=== PATIENT | male | born 1965 | race Caucasian/White ===

== ENCOUNTER → 2017-04-05 | Outpatient (CLI) | payer OTHER ==
[~2017-04-05] MED LIST: GLUCOSAMINE; GLUTAMINE; TUMERIC; VITAMIN B12; VITAMIN E
[2017-04-05 15:49] LABS: BASOPHILS % 0.5 % (0.0-1.0); BILIRUBIN,URINE NEGATIVE (NEGATIVE); CLARITY,URINE CLOUDY (CLEAR); COLOR,URINE YELLOW (YELLOW); EOSINOPHILS # (AUTO) 0.3 (0.0-0.4); EOSINOPHILS % 3.7 % (0.0-6.0); HEMATOCRIT 35.6 % (38.2-49.6); HEMOGLOBIN 11.1 g/dL (14.0-18.0); KETONES,URINE NEGATIVE (NEGATIVE); LEUKOCYTE ESTERASE ,URINE NEGATIVE (NEGATIVE); LYMPHOCYTES % 26.9 % (18.0-39.1); MEAN CORPUSCULAR HEMOGLOBIN 22.8 pg (28-32); MEAN CORPUSCULAR HGB CONC 31.2 g/dL (31-35); MEAN CORPUSCULAR VOLUME 73.3 fL (81-99); MONOCYTES # (AUTO) 0.8 (0.2-0.8); MONOCYTES % 10.4 % (4.4-11.3); NEUTROPHILS # (AUTO) 4.3 (2.1-6.9); NEUTROPHILS % 58.2 % (38.7-80.0); NITRITE,URINE NEGATIVE (NEGATIVE); PLATELET COUNT 358 x10e3/uL (140-360); PROTEIN,URINE DIPSTICK NEGATIVE (NEGATIVE); RED BLOOD COUNT 4.86 x10e6/uL (4.3-5.7); RED CELL DISTRIBUTION WIDTH 15.3 % (11.7-14.4); URINE UROBILINOGEN 0.2 mg/dL (0.2 - 1)
[2017-04-05 15:52] LABS: INR 0.88; PROTHROMBIN TIME 12.4 seconds (11.9-14.5)
[2017-04-05 15:53] LABS: PARTIAL THROMBOPLASTIN TIME 30.5 seconds (23.8-35.5)
[2017-04-05 16:02] LABS: ANION GAP 12.3 mmol/L (8-16); BLOOD UREA NITROGEN 22 mg/dL (7-26); BUN/CREATININE RATIO 24 (6-25); CALCIUM 9.4 mg/dL (8.4-10.2); CARBON DIOXIDE 27 mmol/L (22-29); CHLORIDE 106 mmol/L (98-107); CHOL/HDL RATIO 3.1 (3.9-4.7); CHOLESTEROL 161 MD/DL (0-199); EST GLOMERULAR FILTRATION RATE > 60 ML/MIN (60-); GLUCOSE 96 mg/dL (74-118); HDL CHOLESTEROL 52 MG/DL (40-60); LDL CHOLESTEROL 99 MG/DL (60-130); POTASSIUM 4.3 mmol/L (3.5-5.1); SODIUM 141 mmol/L (136-145); TRIGLYCERIDES 51 MG/DL (0-149)
--- NOTE | 2017-04-05 18:15 | Diagnostic Imaging Report ---
PROCEDURE:CHEST 2 VIEWS COMPARISON:None. INDICATIONS:PREOP - HERNIA REPAIR FINDINGS: Lines and tubes: None Heart size normal. No focal pulmonary opacity, pleural effusion or pneumothorax. Upper abdomen unremarkable with no free air. No acute bony abnormality. CONCLUSION:No evidence for acute disease. Dictated by: Agustin Srivastava M.D. on 04/05/2017 at 18:23 Electronically approved by: Agustin Srivastava M.D. on 04/05/2017 at 18:23
== END ==
LOC: RAD 14:46
PROVIDERS: ATTEND Surgery
DX: K40.90 Unilateral inguinal hernia, without obstruction or gangrene, not specified as recurrent (principal); D56.9 Thalassemia, unspecified; E16.2 Hypoglycemia, unspecified; M79.7 Fibromyalgia; G47.30 Sleep apnea, unspecified
CPT/HCPCS: 36415; 71020; 80048; 80061; 81003; 84152; 85025; 85610; 85730; 93005

== ENCOUNTER → 2017-04-14 | Day surgery (SDC) | payer OTHER ==
[~2017-04-14] MED LIST changes: +BACITRACIN ZINC 15 GM OINT ONE; +CEFAZOLIN SOD 1 GM VIAL ONE; +DEXAMETHASONE SOD PHOS INJ 4 MG/ML VIAL ONE; +FENTANYL CITRATE/PF 100MCG/2 ML INJ ONE; +GLYCOPYRROLATE INJ 1MG/ 5 ML SYR ONE; +KETOROLAC TROMETHAMINE 30 MG/ML VIAL ONE; +LIDOCAINE 1% W/EPINEPHRINE 20 ML VIAL ONE; +LIDOCAINE HCL 2% LOCAL INJ 5 ML SDV VIAL INJ ONE; +MIDAZOLAM HCL 2 MG/2 ML VIAL ONE; +NEOSTIGMINE 5 MG/5ML SYR ONE; +ONDANSETRON HCL INJ 2 MG/ML VIAL ONE; +PROPOFOL IV EMULSION 10 MG/ML 20 ML VIAL ONE; +SEVOFLURANE INHAL SOLN 250 ML PEN BTL ONE
--- NOTE | 2017-04-14 14:39 | Operative Report ---
DATE OF PROCEDURE: April 14, 2017 PREOPERATIVE DIAGNOSIS: Left inguinal hernia. POSTOPERATIVE DIAGNOSIS: Left inguinal hernia. PROCEDURE PERFORMED: Repair of left inguinal hernia with ULTRAPRO hernia system, oval type. RADIUS CORNER MACHINE OPERATOR: Nyla Parker. ESTIMATED BLOOD LOSS: Minimal. DRAINS: None. COMPLICATIONS: None. INDICATIONS: The patient is a 51-year-old male who complained of a bulge of the left groin for over a year, becoming tender now. INTRAOPERATIVE FINDINGS: Patient had a direct defect, no indirect hernia sac. The defect was basically a blowout of the inguinal canal floor. There was no femoral herniation. The ULTRAPRO hernia system oval type was deployed. DESCRIPTION OF THE PROCEDURE: With the patient lying on the operative table in the supine position after administration of general anesthesia, he was prepped and draped for repair of left inguinal hernia. Preemptive anesthesia was given with 0.25% Marcaine with epinephrine as an ilioinguinal nerve block and an incisional nerve block. A transverse groin incision was made, deepened through the skin, subcutaneous tissue, and Kenny's fascia until the external oblique aponeurosis was identified. This was incised along the course of the fibers, transecting the external inguinal ring. Medial and lateral leads were developed. The cord was mobilized at the level of the pubic tubercle and retracted away from the operative field by a Yariel drain. The cremaster veil was incised. An indirect hernia sac was searched for and none was found. The transversalis fascia, which was protruding with a blowout of the floor, was incised exposing the preperitoneal space. Using blunt dissection, the ULTRAPRO hernia system was then deployed in the preperitoneal space with the underlay part of the mesh covering the direct defect and the femoral area and the overlay part of the mesh over the inguinal canal floor. A slit was made to accommodate the cord and the mesh was then secured to the local tissues using a series of interrupted 2-0 Ethibond suture. The wound was irrigated. Bleeding points were cauterized. Sponge and instrument counts were correct twice during this type of the procedure. Then, the wound was irrigated. Further local infiltration was given to the operative field with 1% Xylocaine with epinephrine and then, the wound was closed in layers using 2-0 Vicryl for the external oblique aponeurosis, 2-0 plain catgut for the soft tissues, and the skin was closed using madina. Sterile dressing was applied. The patient tolerated the procedure well, taken to recovery room in stable condition. Job#: [id number] SAK
== END | disposition home or self-care (01) ==
LOC: OR 07:59
PROVIDERS: ATTEND Surgery
DX: K40.90 Unilateral inguinal hernia, without obstruction or gangrene, not specified as recurrent (principal); M79.7 Fibromyalgia; G47.33 Obstructive sleep apnea (adult) (pediatric)
CPT/HCPCS: 49505; C1781; J0690; J1100; J1885; J2001; J2250; J2405